=== PATIENT | female | born 1945 | race Caucasian/White ===

== ENCOUNTER 2023-08-18 13:14 | Emergency (ER) | payer BC, MEDICAID ==
[~2023-08-18] VITALS: Ht 154.9 cm; Wt 63.5 kg
[2023-08-18 15:46] VITALS: BP 133/80; TEMP 98; O2SAT 99
== END 2023-08-18 15:15 | disposition home or self-care (01) ==
LOC: ER 13:14
DX: S93.491A Sprain of other ligament of right ankle, initial encounter (principal); X37.1XXA Tornado, initial encounter; Y93.89 Activity, other specified; Y92.89 Other specified places as the place of occurrence of the external cause; Y99.8 Other external cause status
CPT/HCPCS: 73600; 73630; A4606; A4663